=== PATIENT | female | born 1960 | race Caucasian/White ===

== ENCOUNTER 2018-02-09 12:55 | Emergency (ER) | payer OTHER ==
[2018-02-09] MEDS ORDERED: Rabies Vaccine (RabAvert)* 2.5 UNITS VIAL IM ONE (15:48)
[2018-02-09] MEDS ORDERED: Tetan/Diph/Pertus SYR(Tdap)* 0.5 ML SYR(BOOSTRIX) use SYR IM ONE (15:48)
[2018-02-09] MEDS ORDERED: Rabies Immune Globulin 2 ML* 150 UNITS/ML VIAL IM ONE ×2 (15:53→17:00)
[2018-02-09] MEDS ORDERED: Rabies Immune Globulin 10 ML* 150 UNIT/ML VIAL IM ONE (16:00)
[2018-02-09] MEDS ORDERED: DOXYcycline CAP(*) 100 MG PO ONE (16:24)
--- NOTE | 2018-02-09 17:04 | ED ---
Bite Injury/Animal - HPI Summary HPI Summary: Patient is a 57-year-old female who presents emergency department after being bitten by a schuster just prior to arrival. Pt. states she and her were picking up her daughter from [place] [employer]. She states she was loading their car when a schuster ran out from near a dumpster and bit her right leg. Animal was not captured. Patient has no past medical history. She is unaware of her last tetanus immunization. Symptoms are moderate in severity. No current modifying factors. - History of Current Complaint Chief Complaint: EDAnimalBite Stated Complaint: SCHUSTER BITE Time Seen by Provider: 02/09/18 15:37 Hx Obtained From: Patient Pain Intensity: 0 - Allergies/Home Medications Allergies/Adverse Reactions: Allergies Allergy/AdvReac Type Severity Reaction Status Date / Time ampicillin Allergy Unknown Verified 02/09/18 16:14 Reaction Details aspirin Allergy Anaphylatic Verified 02/09/18 16:14 Shock Penicillins Allergy Anaphylatic Verified 02/09/18 16:14 Shock Sulfa (Sulfonamide Allergy Unknown Verified 02/09/18 16:14 Antibiotics) Reaction Details Home Medications: Home Medications Escitalopram (NF) [Lexapro 20 mg (NF)] 20 mg PO DAILY 02/09/18 [History Confirmed 02/09/18] Tretinoin [Retin-A] 0.01 % TOPICAL BEDTIME 02/09/18 [History Confirmed 02/09/18] PMH/Surg Hx/FS Hx/Imm Hx Previously Healthy: Yes Infectious Disease History: No Infectious Disease History: Denies: Traveled Outside the [place] in Last 30 Days - Social History Lives: With Family Review of Systems Positive: Other - right wound to right lower leg All Other Systems Reviewed And Are Negative: Yes Physical Exam Triage Information Reviewed: Yes Vital Signs On Initial Exam: Initial Vitals Temp Pulse Resp BP Pulse Ox 98.0 F 86 20 134/89 97 02/09/18 13:00 02/09/18 13:00 02/09/18 13:00 02/09/18 13:00 02/09/18 13:00 Vital Signs Reviewed: Yes Appearance: Positive: Well-Appearing - Pt. sitting on bed in no acute distress. Family present. Skin: Positive: Warm, Dry Head/Face: Positive: Normal Head/Face Inspection Eyes: Positive: Normal, GARRETT Neck: Positive: Supple Musculoskeletal: Positive: Other - Superficial puncture wound noted to the right mid medial right lower extremity. Mild surrounding ecchymosis. Neurological: Positive: CN Intact II-III Psychiatric: Positive: Normal Diagnostics - Vital Signs Vital Signs Temp Pulse Resp BP Pulse Ox 02/09/18 13:00 98.0 F 86 20 134/89 97 - Laboratory Lab Statement: Any lab studies that have been ordered have been reviewed, and results considered in the medical decision making process. Bite Injury Course/Dx - Course Course Of Treatment: Pt. presenting for evaluation after being bit by a schuster. Rabies vaccination and immunoglobulin ordered. Patient's tetanus will be updated. Will start on doxycycline given severe penicillin allergy. Wound was cleaned and dressed. Pt. lives in [facility]. She will f.u with her local health department for the remainder of the rabies vaccine series. Advised to keep the wound clean and dry. To return to ER for redness, swelling or drainage from wound. Patient understands and agrees with plan. - Diagnoses Differential Diagnosis/HQI/PQRI: Positive: Laceration, Puncture, Rabies Exposure Provider Diagnosis: Animal bite Discharge - Sign-Out/Discharge Documenting (check all that apply): Discharge/Admit/Transfer - Discharge Plan Condition: Good Disposition: HOME Prescriptions: DOXYcycline CAP(*) [DOXYcycline 100MG CAP(*)] 100 mg PO BID 10 Days #20 cap Patient Education Materials: Animal Bite (ED), Rabies Vaccine (ED) Referrals: No Primary Care Phys,NOPCP [Primary Care Provider] - Additional Instructions: Go to your local Health Department to receive the remainder of the rabies vaccination Vaccination schedule: 02/12, 02/16, and 02/23/18 Take antibiotic as directed Keep wound clean and dry Return to ER fo redness, swelling or drainage at wound site - Billing Disposition and Condition Condition: GOOD Disposition: HOME
[2018-02-09 17:11] VITALS: BP 141/60
== END 2018-02-09 17:10 | disposition home or self-care (01) ==
LOC: ED 12:55
DX: S81.851A Open bite, right lower leg, initial encounter (principal); W64.XXXA Exposure to other animate mechanical forces, initial encounter; Y92.9 Unspecified place or not applicable
CPT/HCPCS: 90375; 90471; 90675; 90715; 99282; A9270-GY